=== PATIENT | female | born 1980 | race Hispanic/Latino ===

== ENCOUNTER 2024-06-30 23:03 | Emergency (ER) | payer SELFPAY ==
[~2024-06-30] VITALS: Ht 157.5 cm; Wt 97.5 kg
--- NOTE | 2024-06-30 23:08 | NUR ---
UA CUP PROVIDED
[2024-07-01] MEDS: morPHINE 2 MG SYG IM ONE (01:58)
[2024-07-01] MEDS: CYCLOBENZAPRINE HCL 10 MG TABLET PO ONE (01:58)
[2024-07-01] MEDS ORDERED: KETO10TA2 PO (02:47)
[2024-07-01] MEDS ORDERED: METH-662 PO (02:47)
--- NOTE | 2024-07-01 02:47 | ERN ---
General Chief Complaint: Mechanical Fall Stated Complaint: FALL Time Seen by MD: 01:30 Time Seen by Midlevel: 01:30 Source: patient History of Present Illness Allergies: Coded Allergies: No Known Allergies (Unverified Allergy, Unknown, 06/30/24) Past Medical History Past Medical History: No Pertinent History Past Surgical History: BTL Female( History) LMP: Jun 29, 2024 ED Course Orders Procedure Category Date Status Time Morphine 2mg Syg PHA 07/01/24 Complete (Morphine 2mg Syg) 02:00 Cyclobenzaprine Hcl PHA 07/01/24 Complete (Cyclobenzaprine Hcl 02:00 Elbow 2vws Lt RAD 07/01/24 Taken 01:40 Lumbar Spine 2-3vws RAD 07/01/24 Taken 01:40 Current Medications Medications (Trade) Dose Ordered Sig/Harvey Route PRN Reason Start Time Stop Time Status Last Admin Dose Admin Cyclobenzaprine HCl (Cyclobenzaprine HCl) 5 mg ONCE ONCE PO 07/01/24 02:00 07/01/24 02:01 DC 07/01/24 01:58 Morphine Sulfate (morPHINE 2MG SYG) 2 mg ONCE ONCE IM 07/01/24 02:00 07/01/24 02:01 DC 07/01/24 01:58 Vital Signs Date Time Temp Pulse Resp B/P (MAP) Pulse Ox O2 Delivery O2 Flow Rate FiO2 07/01/24 01:48 98.1 73 15 130/85 100 Room Air* 0 21 06/30/24 23:04 98.1 75 16 143/92 100 Room Air DX & DISP Disposition: Discharge Departure Impression: Primary Impression: Fall Additional Impressions: Lumbar strain, Left elbow contusion Condition: Stable Scripts Methocarbamol (Robaxin) 750 Mg Tab 1 TAB PO TID for 5 Days, #15 TAB 0 Refills Prov: JAME RUBIN 07/01/24 Ketorolac Tromethamine (Ketorolac Tromethamine) 10 Mg Tablet 1 TAB PO BID for pain for 5 Days, #10 TAB 0 Refills Prov: JAME RUBIN 07/01/24 Additional Instructions: Your x-ray of the left elbow does not show any acute fracture or dislocation. Your lower back x-ray does not show any evidence of a fracture. I have given you a prescription for Toradol and Flexeril which should help improve your symptoms over the next couple of days. Referrals: SELF,REFERRAL (PCP) Time of Disposition: 02:36 I have reviewed the case, and I agree with, Diagnosis and Plan I performed the substantive portion of the visit. I have reviewed and personally made and approve the management plan that is documented in the note by myself or the [facility]. I acknowledge for responsibility for the patient's management plan. JAME RUBIN Jul 01, 2024 02:47
[2024-07-01 02:50] VITALS: BP 126/78; PULSE 60; RESP 17; TEMP 98.5; O2SAT 100
--- NOTE | 2024-07-01 08:17 | HMCIMG ---
LEFT ELBOW RADIOGRAPHS - 2 VIEWS INDICATION: Pain COMPARISON: None FINDINGS: AP, lateral views. No fracture or dislocation identified. No significant joint effusion is present. No radiopaque foreign body noted. IMPRESSION: No evidence for fracture or dislocation.
--- NOTE | 2024-07-01 08:17 | HMCIMG ---
LUMBAR SPINE RADIOGRAPHS - 2-3 VIEWS INDICATION: Back pain COMPARISON: None FINDINGS: AP, lateral, and coned-down lateral views. Straightening of the normal lordosis may be related to overlying muscle spasm and/or patient positioning. Five nonrib-bearing lumbar vertebral bodies are noted. No acute fracture or subluxation identified. Vertebral body heights are well-maintained. Mild disc height loss at the L5-S1 level. IMPRESSION: No fracture or subluxation identified.
== END 2024-07-01 03:01 | disposition home or self-care (01) ==
LOC: EDH 23:03
DX: S39.012A Strain of muscle, fascia and tendon of lower back, initial encounter (principal); S50.02XA Contusion of left elbow, initial encounter; Z98.51 Tubal ligation status; W18.39XA Other fall on same level, initial encounter; Y93.89 Activity, other specified; Y92.89 Other specified places as the place of occurrence of the external cause; Y99.8 Other external cause status
CPT/HCPCS: 99284; 73070; 72100; 96372; J2270